=== PATIENT | female | born 1995 | race Two or more races ===

== ENCOUNTER 2022-08-07 15:28 | Emergency (ER) | payer SELFPAY | END 2022-08-07 16:35 | disposition left against medical advice (07) | LOC: ER 15:28 | DX: R68.84 Jaw pain (principal); Z53.21 Procedure and treatment not carried out due to patient leaving prior to being seen by health care provider ==

== ENCOUNTER 2024-12-15 04:14 | Inpatient (IN) | payer OTHER ==
[~2024-12-15] VITALS: Ht 172.7 cm; Wt 123.9 kg
[2024-12-15 04:58] LABS: URINE HCG NEGATIVE (NEG)
[2024-12-15 05:06] LABS: BASOPHILS # (AUTO) 0.1 X10'3 (0-0.2); BASOPHILS % (AUTO) 0.8 % (0-1); EOSINOPHILS # (AUTO) 0.3 X10'3 (0-0.9); EOSINOPHILS % (AUTO) 4.1 % (0-6); HEMATOCRIT 40.5 % (35.0-45.0); HEMOGLOBIN 13.8 g/dl (12.0-16.0); LYMPHOCYTES # (AUTO) 1.9 X10'3 (1.1-4.8); LYMPHOCYTES % (AUTO) 25.1 % (21-51); MEAN CORPUSCULAR HEMOGLOBIN 30.4 PG (27.0-31.0); MEAN CORPUSCULAR VOLUME 89.5 FL (78-98); MEAN PLATELET VOLUME 7.8 FL (7.4-10.4); MONOCYTES # (AUTO) 0.6 X10'3 (0-0.9); NEUTROPHILS # (AUTO) 4.7 X10'3 (1.8-7.7); PLATELET COUNT 307 X10'3 (140-440); RED BLOOD COUNT 4.53 X10'6 (4.20-5.60); WHITE BLOOD COUNT 7.5 X10'3 (4.5-11.0)
[2024-12-15] MEDS: normal saline 1000ml 1,000 ML IV ONE (05:06)
[2024-12-15] MEDS: normal saline 1000ML IV soln IVB ONE (05:06)
[2024-12-15] MEDS ORDERED: PARO10TA4 PO (05:08)
[2024-12-15 05:10] LABS: BILIRUBIN,URINE MODERATE (Neg); CLARITY,URINE SLIGHTLY CLOUDY (Clear); COLOR,URINE YELLOW (Yellow); GLUCOSE, URINE 100 mg/dl (Neg); KETONES,URINE 15 mg/dl (Neg); LEUKOCYTE ESTERASE ,URINE TRACE (Neg); NITRITES, URINE NEGATIVE (Neg); OCCULT BLOOD,URINE NEGATIVE (Neg); PROTEIN,URINE NEGATIVE (Neg)
[2024-12-15 05:13] LABS: UA COLLECTION TYPE CLN CATCH MIDSTREAM
[2024-12-15 05:14] LABS: ALANINE AMINOTRANSFERASE 151 U/L (12-78); ALBUMIN 3.3 G/DL (3.4-5.0); ALBUMIN/GLOBULIN RATIO 0.7 (1.1-1.5); ALKALINE PHOSPHATASE 167 IU/L (46-116); ANION GAP 12 (8-16); ASPARTATE AMINO TRANSFERASE 243 U/L (10-37); BILIRUBIN,TOTAL 2.5 MG/DL (0.1-1.0); BLOOD UREA NITROGEN 10 MG/DL (7-18); BUN/CREATININE RATIO 16.7 (10.0-20.0); CALCIUM 9.2 MG/DL (8.5-10.1); CHLORIDE 104 MMOL/L (99-107); GLUCOSE 109 MG/DL (70-104); LIPASE 50 U/L (16-77); MAGNESIUM 1.8 MG/DL (1.5-2.4); POTASSIUM 3.8 MMOL/L (3.5-5.1); SODIUM 139 MMOL/L (135-145); TOTAL CARBON DIOXIDE 23.4 MMOL/L (24-32); TOTAL PROTEIN 7.8 G/DL (6.4-8.2); eCRCL 141 ML/MIN; eGFR > 90 ML/MIN
[2024-12-15 05:19] LABS: SQUAMOUS EPITHELIAL CELL,UR MANY /LPF (FEW)
[2024-12-15 05:20] LABS: BACTERIA,URINE 4+ /HPF (Neg); RBC,URINE NONE SEEN /HPF (0-2)
[2024-12-15] MEDS ORDERED: potassium Cl 20 mEq SR tablet PO PRN ×2 (05:40)
[2024-12-15] MEDS ORDERED: potassium Cl 40MEQ/1/2NS 520ml 520 ML IV PRN (05:40)
[2024-12-15] MEDS ORDERED: magnesium sulf-water 4G/100mL 100 ML IV PRN (05:40)
[2024-12-15] MEDS ORDERED: mag hydrox/Alum hydrox/simeth 30ml oral suspension PO PRN (05:40)
[2024-12-15] MEDS ORDERED: magnesium Cl slow-release 64mg tablet PO PRN (05:40)
[2024-12-15] MEDS ORDERED: ondansetron/PF 4mg/2ml inj IV PRN (05:40)
[2024-12-15] MEDS ORDERED: magnesium sulf-water 2g/50mL 50 ML IV PRN (05:40)
[2024-12-15] MEDS ORDERED: HYDROcodone/acetaminophen 5mg/325mg tablet PO PRN (05:40)
[2024-12-15] MEDS ORDERED: morphine 2 MG/ML inj. syringe IV PRN (05:40)
[2024-12-15] MEDS ORDERED: acetaminophen 325mg tablet PO PRN (05:40)
[2024-12-15] MEDS ORDERED: magnesium hydroxide 30ml (MOM) UD suspension PO PRN (05:40)
[2024-12-15 05:42] LABS: URINE AMPHETAMINE SCREEN NEGATIVE (Neg); URINE BARBITUATE SCREEN NEGATIVE (Neg); URINE BENZODIAZEPINES SCREEN NEGATIVE (Neg); URINE CANNABINOID SCREEN NEGATIVE (Neg); URINE COCAINE SCREEN NEGATIVE (Neg); URINE METHADONE SCREEN NEGATIVE (Neg); URINE OPIATE SCREEN NEGATIVE (Neg); URINE PHENCYCLIDINE SCREEN NEGATIVE (Neg)
[2024-12-15 05:45] LABS: ETHANOL < 10 MG/DL (<10)
[2024-12-15] MEDS ORDERED: LORazepam 2 mg/ml vial IV PRN ×2 (06:05→17:30)
[2024-12-15] MEDS ORDERED: haloperidol lactate 5mg/ml inj IM PRN ×2 (06:05→17:30)
[2024-12-15] MEDS: normal saline 1000ml 1,000 ML IV SCH (06:57)
[2024-12-15] MEDS: K and/or MAG REPLACEMENT MC SCH (08:00)
[2024-12-15] MEDS: ondansetron/PF 4mg/2ml inj IV SCH (08:04)
[2024-12-15] MEDS: thiamine 100mg/ml 2ml inj. IV SCH (08:04)
[2024-12-15] MEDS: docusate sod 100mg capsule PO SCH (08:05)
[2024-12-15] MEDS: multivitamins, therapeutics tablet PO SCH (08:13)
[2024-12-15] MEDS: folic acid 1mg/0.2ml inj IV SCH (08:22)
[2024-12-15] MEDS ORDERED: TIRZ7.5P3 SUBCUT (08:45)
[2024-12-15] MEDS ORDERED: NORG1TAB77 (08:45)
[2024-12-15 10:30] VITALS: RESP 16
[2024-12-15 10:46] VITALS: BP 135/73; PULSE 78; RESP 18; TEMP 98.3; O2SAT 99
[2024-12-15 10:52] VITALS: BP 135/73; RESP 18; TEMP 98.3; O2SAT 98
[2024-12-15] MEDS ORDERED: TIRZEPATIDE 7.5 MG/0.5 ML SQ SCH (13:20)
[2024-12-15 14:08] LABS: ALANINE AMINOTRANSFERASE 141 U/L (12-78); ALBUMIN 2.7 G/DL (3.4-5.0); ALBUMIN/GLOBULIN RATIO 0.7 (1.1-1.5); ALKALINE PHOSPHATASE 161 IU/L (46-116); ANION GAP 7 (8-16); ASPARTATE AMINO TRANSFERASE 196 U/L (10-37); BILIRUBIN,TOTAL 3.3 MG/DL (0.1-1.0); BLOOD UREA NITROGEN 8 MG/DL (7-18); BUN/CREATININE RATIO 15.7 (10.0-20.0); CALCIUM 8.3 MG/DL (8.5-10.1); CHLORIDE 106 MMOL/L (99-107); CREATININE 0.51 MG/DL (0.40-0.90); GLUCOSE 73 MG/DL (70-104); POTASSIUM 3.8 MMOL/L (3.5-5.1); SODIUM 137 MMOL/L (135-145); TOTAL CARBON DIOXIDE 24.4 MMOL/L (24-32); TOTAL PROTEIN 6.4 G/DL (6.4-8.2); eCRCL 166 ML/MIN; eGFR > 90 ML/MIN
[2024-12-15] MEDS ORDERED: sincalide inj 2.5 MCG in normal saline 100ml IV soln 100 ML IV ONE (15:10)
[2024-12-15] MEDS: metroNIDAZOLE-Flagyl 500mg/NS 100 ML IV SCH (15:40)
[2024-12-15] MEDS: dextrose 5%-normal saline 1,000 ML IV SCH (15:41)
[2024-12-15] MEDS: CefTRIAXone/D5W-Rocephin 1gm 50 ML IV SCH (16:55)
[2024-12-15 17:25] LABS: APTT 25 SECONDS (22-32); PROTHROMBIN TIME 10.8 SECONDS (9.0-12.0)
[2024-12-15 18:00] VITALS: BP 115/67; PULSE 74; RESP 18; TEMP 98.8; O2SAT 97
[2024-12-15] MEDS: LORazepam 2 mg/ml vial IV PRN (18:00)
[2024-12-15] MEDS: nicotine 14mg patch - 24hr TD SCH (18:01)
[2024-12-15 20:00] VITALS: RESP 20; O2SAT 96
[2024-12-15] MEDS ORDERED: PARoxetine 20mg tablet PO SCH (20:00)
[2024-12-15 22:00] VITALS: BP 126/70; PULSE 57; RESP 18; TEMP 97.7; O2SAT 100
[2024-12-16] VITALS (16 sets, daily range): BP systolic 104–177; BP diastolic 49–100; PULSE 68–106; RESP 13–20; TEMP 98–98.6; O2SAT 92–98
[2024-12-16 04:27] LABS: BASOPHILS % (AUTO) 0.8 % (0-1); EOSINOPHILS # (AUTO) 0.3 X10'3 (0-0.9); EOSINOPHILS % (AUTO) 6.3 % (0-6); HEMATOCRIT 35.3 % (35.0-45.0); HEMOGLOBIN 11.9 g/dl (12.0-16.0); LYMPHOCYTES % (AUTO) 41.6 % (21-51); MEAN CORPUSCULAR HEMOGLOBIN 30.9 PG (27.0-31.0); MEAN CORPUSCULAR HGB CONC 33.8 g/dL (33.0-36.5); MEAN CORPUSCULAR VOLUME 91.5 FL (78-98); MEAN PLATELET VOLUME 7.9 FL (7.4-10.4); MONOCYTES # (AUTO) 0.5 X10'3 (0-0.9); MONOCYTES % (AUTO) 9.9 % (2-12); NEUTROPHILS % (AUTO) 41.4 % (42-75); PLATELET COUNT 205 X10'3 (140-440); RED BLOOD COUNT 3.86 X10'6 (4.20-5.60); RED CELL DISTRIBUTION WIDTH 14.8 % (11.5-14.5); WHITE BLOOD COUNT 4.8 X10'3 (4.5-11.0)
[2024-12-16 04:39] LABS: PROTHROMBIN TIME 10.4 SECONDS (9.0-12.0)
[2024-12-16 04:48] LABS: ALANINE AMINOTRANSFERASE 110 U/L (12-78); ALBUMIN 2.5 G/DL (3.4-5.0); ALBUMIN/GLOBULIN RATIO 0.7 (1.1-1.5); ALKALINE PHOSPHATASE 150 IU/L (46-116); ANION GAP 6 (8-16); ASPARTATE AMINO TRANSFERASE 100 U/L (10-37); BILIRUBIN,TOTAL 1.2 MG/DL (0.1-1.0); BLOOD UREA NITROGEN 5 MG/DL (7-18); BUN/CREATININE RATIO 7.7 (10.0-20.0); CALCIUM 8.1 MG/DL (8.5-10.1); CHLORIDE 107 MMOL/L (99-107); CREATININE 0.65 MG/DL (0.40-0.90); GLUCOSE 109 MG/DL (70-104); SODIUM 140 MMOL/L (135-145); TOTAL CARBON DIOXIDE 26.6 MMOL/L (24-32); TOTAL PROTEIN 6.2 G/DL (6.4-8.2); eCRCL 130 ML/MIN; eGFR > 90 ML/MIN
[2024-12-16] MEDS: PARoxetine 20mg tablet PO SCH (07:41)
[2024-12-16] MEDS: INDOCYANINE GREEN 25 MG/10 ML VIAL IV STA (15:04)
[2024-12-16] MEDS ORDERED: morphine 2 MG/ML inj. syringe IV PRN (17:10)
[2024-12-16] MEDS: ringers solution, lacted 1,000 ML IV SCH (17:10)
[2024-12-16] MEDS ORDERED: proCHLORperazine 10 MG/2 ml inj IV PRN (17:10)
[2024-12-16] MEDS ORDERED: ondansetron/PF 4mg/2ml inj IV PRN (17:10)
[2024-12-16] MEDS ORDERED: meperidine/PF 25mg/ml syringe IV PRN ×3 (17:10)
[2024-12-16] MEDS ORDERED: LIDOcaine 1% 30ml preserv. free vial ONE (17:15)
[2024-12-16] MEDS ORDERED: BUPIVAcaine 2.5mg/ml inj 50ml vial (contains preservative) ONE (17:15)
[2024-12-16] MEDS ORDERED: sevoflurane 250ml liquid IH ONE (19:19)
[2024-12-16] MEDS ORDERED: midazolam 1 mg/ML 2ml injection ONE ×2 (19:29→19:31)
[2024-12-16] MEDS ORDERED: fentaNYL/PF 50MCG/1 ML 2ML syringe ONE (19:29)
[2024-12-16] MEDS ORDERED: ceFAZolin 1000mg inj ONE ×3 (19:39)
[2024-12-16] MEDS ORDERED: propofol inj 20 ML IV ONE (20:12)
[2024-12-16] MEDS ORDERED: dexamethasone sod phosphate 4mg/ml inj. ONE (20:12)
[2024-12-16] MEDS ORDERED: ondansetron/PF 4mg/2ml inj ONE (20:12)
[2024-12-16] MEDS ORDERED: rocuronium 10mg/ml inj IV ONE ×2 (20:13)
[2024-12-16] MEDS ORDERED: glycopyrrolate 0.2mg/ml inj ONE (20:46)
[2024-12-16] MEDS ORDERED: neostigmine methylsulfate 1 MG/ML 10ml vial ONE (20:46)
[2024-12-16] MEDS ORDERED: sugammadex 200mg/2ml injection IV ONE (20:52)
[2024-12-16] MEDS ORDERED: HYDROcodone/acetaminophen 5mg/325mg tablet PO PRN (20:55)
[2024-12-16] MEDS ORDERED: naloxone 0.4 mg/ml inj IV PRN (20:55)
[2024-12-16] MEDS ORDERED: acetaminophen 1,000mg/100ml IV 100 ML IV SCH (21:08)
[2024-12-16] MEDS: morphine 4 MG/ML inj SYRINge IV PRN (21:08)
[2024-12-16] MEDS: acetaminophen 1,000mg/100ml IV 100 ML IV SCH (21:13)
[2024-12-17 00:35] VITALS: BP 139/71; PULSE 88; RESP 16; TEMP 98.6; O2SAT 93
[2024-12-17] MEDS: HYDROcodone/acetaminophen 10/325mg tab PO PRN (01:34)
[2024-12-17 01:35] VITALS: BP 109/52; PULSE 85; RESP 16; TEMP 98.4; O2SAT 96
[2024-12-17 02:00] VITALS: BP 109/52; PULSE 85; RESP 16; TEMP 98.4; O2SAT 96
[2024-12-17 05:20] LABS: BASOPHILS % (AUTO) 0.1 % (0-1); EOSINOPHILS % (AUTO) 0.1 % (0-6); HEMOGLOBIN 12.5 g/dl (12.0-16.0); LYMPHOCYTES # (AUTO) 0.9 X10'3 (1.1-4.8); LYMPHOCYTES % (AUTO) 12.8 % (21-51); MEAN CORPUSCULAR HEMOGLOBIN 30.2 PG (27.0-31.0); MEAN CORPUSCULAR HGB CONC 32.9 g/dL (33.0-36.5); MEAN CORPUSCULAR VOLUME 91.7 FL (78-98); MEAN PLATELET VOLUME 7.9 FL (7.4-10.4); MONOCYTES # (AUTO) 0.2 X10'3 (0-0.9); MONOCYTES % (AUTO) 2.9 % (2-12); NEUTROPHILS # (AUTO) 5.9 X10'3 (1.8-7.7); NEUTROPHILS % (AUTO) 84.1 % (42-75); PLATELET COUNT 250 X10'3 (140-440); RED BLOOD COUNT 4.15 X10'6 (4.20-5.60); RED CELL DISTRIBUTION WIDTH 14.4 % (11.5-14.5)
[2024-12-17 05:29] LABS: INR 1.1 INR
[2024-12-17 05:48] LABS: ALANINE AMINOTRANSFERASE 93 U/L (12-78); ALBUMIN 2.7 G/DL (3.4-5.0); ALBUMIN/GLOBULIN RATIO 0.7 (1.1-1.5); ALKALINE PHOSPHATASE 143 IU/L (46-116); ANION GAP 5 (8-16); ASPARTATE AMINO TRANSFERASE 70 U/L (10-37); BLOOD UREA NITROGEN 4 MG/DL (7-18); BUN/CREATININE RATIO 6.1 (10.0-20.0); CALCIUM 8.4 MG/DL (8.5-10.1); CHLORIDE 108 MMOL/L (99-107); CREATININE 0.66 MG/DL (0.40-0.90); GLUCOSE 133 MG/DL (70-104); POTASSIUM 4.4 MMOL/L (3.5-5.1); SODIUM 140 MMOL/L (135-145); TOTAL CARBON DIOXIDE 26.6 MMOL/L (24-32); TOTAL PROTEIN 6.6 G/DL (6.4-8.2); eCRCL 128 ML/MIN; eGFR > 90 ML/MIN
[2024-12-17 06:00] VITALS: BP 131/67; PULSE 62; RESP 16; TEMP 98.1; O2SAT 96
[2024-12-17 10:52] VITALS: RESP 16; O2SAT 96
[2024-12-17 11:00] VITALS: BP 127/78; PULSE 77; RESP 18; TEMP 98.1; O2SAT 97
[2024-12-17] MEDS ORDERED: FOLI1TAB27 PO (12:18)
[2024-12-17] MEDS ORDERED: THIA50TA10 PO (12:18)
[2024-12-17] MEDS ORDERED: MULT-1085 PO (12:18)
[2024-12-17] MEDS ORDERED: HYDR-3965 PO (12:18)
== END 2024-12-17 13:30 | disposition home or self-care (01) | DRG 419 ==
LOC: ER 04:15 → ED HOLD 06:02 → SUR 3N 10:41
PROVIDERS: ADMIT Surgery Surgical Critical Care; ATTEND Family Medicine
PROC: BF522Z0 Other Imaging of Gallbladder using Fluorescing Agent, Intraoperative (ICD-10-PCS; 2024-12-16)
PROC: 8E0W4CZ Robotic Assisted Procedure of Trunk Region, Percutaneous Endoscopic Approach (ICD-10-PCS; 2024-12-16)
PROC: 0FT44ZZ Resection of Gallbladder, Percutaneous Endoscopic Approach (ICD-10-PCS; principal; 2024-12-16 19:19)
DX: K80.64 Calculus of gallbladder and bile duct with chronic cholecystitis without obstruction (principal); F32.A Depression, unspecified; F41.9 Anxiety disorder, unspecified; K76.0 Fatty (change of) liver, not elsewhere classified; E80.6 Other disorders of bilirubin metabolism; R74.01 Elevation of levels of liver transaminase levels; F10.10 Alcohol abuse, uncomplicated; Y90.9 Presence of alcohol in blood, level not specified; R82.71 Bacteriuria; Z87.891 Personal history of nicotine dependence
CPT/HCPCS: 99285; Z7506; Z7508; 36415; 74181; 76700; 80053; 80305; 80320; 81001; 81025; 82948; 83690; 83735; 85025; 85610; 85730; 87081; A4215; A4615; A4618; A7000; G0378; J0131; J0690; J0696; J1100; J2003; J2060; J2250; J2270; J2405; J2704; J2710; J3010; J3411; J3490; J7030; J7042; J7120